=== PATIENT | male | born 1965 | race American Indian/Alaskan Native ===

== ENCOUNTER 2016-08-12 09:24 | Day surgery (SDC) | payer OTHER ==
[2016-08-12 10:40] LABS: Basophils % (Auto) 0.6 % (0.0-1.8); Eosinophils % (Auto) 2.6 % (0.0-4.3); Hematocrit 47.9 % (35.5-45.6); Hemoglobin 15.7 gm/dl (11.8-15.2); Mean Corpuscular HGB Conc 33 % (32-34); Mean Corpuscular Hemoglobin 30 pg (28-32); Mean Corpuscular Volume 92 fl (84-94); Platelet Count 170 K/mm3 (140-440); Red Blood Count 5.22 M/mm3 (3.65-5.03); Red Cell Distribution Width 14.4 % (13.2-15.2)
[2016-08-12 10:48] LABS: INR 1.04 (0.87-1.13)
[2016-08-12 10:49] LABS: Partial Thromboplastin Time 28.1 Sec. (24.2-36.6)
--- NOTE | 2016-08-12 10:51 | Anesthesia Consultation ---
Anesthesia Consult and Med Hx Date of service: 08/12/16 - Airway Anesthetic Teeth Evaluation: Poor (poor, but not loose) ROM Head & Neck: Adequate Mental/Hyoid Distance: Adequate Mallampati Class: Class III Intubation Access Assessment: Possibly Difficult - Pulmonary Exam CTA: Yes - Pre-Operative Health Status ASA Pre-Surgery Classification: ASA3 Proposed Anesthetic Plan: General - Pulmonary Hx Smoking: Yes (1 pk per 1.5 week) Hx Asthma: No Hx Sleep Apnea: No (GABBY PRE SCREEN HIGH RISK) - Cardiovascular System Hx Hypertension: Yes (X 2 YRS, take lisinopril, coreg prn) Hx Coronary Artery Disease: Yes Hx Heart Attack/AMI: Yes (2014, has blood clot at the bottom of the heart, but no symptom) Hx Percutaneous Transluminal Coronary Angioplasty (PTCA): Yes (2014 x1) - Central Nervous System Hx Seizures: No CVA: No Hx Back Pain: Yes (TO LEFT LEG WITH WEAKNESS) - Gastrointestinal Hx Gastroesophageal Reflux Disease: Yes (no med) - Endocrine Hx Renal Disease: No Hx Liver Disease: No Hx Non-Insulin Dependent Diabetes: No (borderline) - Hematic Hx Anemia: No Hx Sickle Cell Disease: No - Other Systems Hx Cancer: No Hx Obesity: No - Additional Comments Anesthesia Medical History Comments: NAC
--- NOTE | 2016-08-12 10:51 | Anesthesia Day of Surgery ---
Anesthesia Day of Surgery - Day of Surgery Patient Examined: Yes Patient H&P Reviewed: Yes Patient is NPO: Yes
[2016-08-12] MEDS ORDERED: NACL 0.9% 1000 ML 1,000 ML IV SCH (11:00)
[2016-08-12] MEDS ORDERED: VERSED IV NR (11:00)
[2016-08-12] MEDS ORDERED: PEPCID PO NR (11:00)
[2016-08-12 11:01] LABS: Alanine Aminotransferase 16 units/L (7-56); Albumin 3.9 g/dL (3.9-5); Albumin/Globulin Ratio 1.3 %; Alkaline Phosphatase 81 units/L (35-129); Anion Gap 16 mmol/L; BUN/Creatinine Ratio 6.25; Blood Urea Nitrogen 5 mg/dL (9-20); Calcium 9.1 mg/dL (8.4-10.2); Carbon Dioxide 27 mmol/L (22-30); Chloride 103.5 mmol/L (98-107); Glucose 96 mg/dL (75-100); Potassium 3.2 mmol/L (3.6-5.0); Sodium 143 mmol/L (137-145); Total Protein 6.9 g/dL (6.3-8.2)
[2016-08-12] MEDS: DILAUDID IV PRN ×4 (11:15→15:40)
[2016-08-12] MEDS ORDERED: ANCEF/STERILE WATER 2 GM/20 ML 2 GM/20 ML SYRINGE IV NR (12:00)
[2016-08-12] MEDS ORDERED: MARCAINE-EPI 0.25%-1:200,000 INFILTRATI ONE (12:30)
[2016-08-12] MEDS ORDERED: DEPO-MEDROL ONE (12:30)
[2016-08-12] MEDS ORDERED: GELFOAM TP ONE (12:31)
[2016-08-12] MEDS ORDERED: THROMBIN (BOVINE) TP ONE (12:31)
[2016-08-12] MEDS ORDERED: BACITRACIN ONE (12:31)
[2016-08-12] MEDS ORDERED: NACL P/F VIAL (10 ML) 0 ML ONE (12:32)
[2016-08-12] MEDS ORDERED: MARCAINE-EPI/PF 0.5%-1:200,000 INFILTRATI ONE (12:39)
[2016-08-12] MEDS ORDERED: XYLOCAINE MPF 2% ONE (13:06)
[2016-08-12] MEDS ORDERED: ROBINUL ONE ×2 (13:06→14:11)
[2016-08-12] MEDS ORDERED: ZEMURON IV ONE (13:06)
[2016-08-12] MEDS ORDERED: NEOSTIGMINE ONE (13:06)
[2016-08-12] MEDS ORDERED: ZOFRAN ONE (13:06)
[2016-08-12] MEDS ORDERED: DECADRON ONE (13:06)
[2016-08-12] MEDS ORDERED: DIPRIVAN 10 MG/ML IV ONE (13:07)
[2016-08-12] MEDS ORDERED: SUBLIMAZE ONE (13:07)
[2016-08-12] MEDS ORDERED: DILAUDID ONE (13:07)
[2016-08-12] MEDS ORDERED: ePHEDrine SULFATE ONE (13:39)
[2016-08-12] MEDS ORDERED: NACL 0.9% IR ONE (13:40)
[2016-08-12] MEDS ORDERED: NACL 0.9% 1000 ML 1,000 ML ONE (13:45)
--- NOTE | 2016-08-12 14:21 | Short Stay Summary ---
Short Stay Documentation Date of service: 08/12/16 - History H&P: obtained from office - Allergies and Medications Current Medications: Allergies ibuprofen Allergy (Verified 08/11/16 11:23) MUSCLE TREMORS,HBP ketorolac tromethamine [From Toradol] Allergy (Verified 08/11/16 11:23) MUSCLE TREMORS , HBP prednisone Allergy (Verified 08/11/16 11:23) MUSCLE TREMORS , HBP aspirin Adverse Reaction (Verified 08/12/16 10:37) Swelling PT STATES THROAT STARTS CLOSING ANTI-INFLAMMATORIES Allergy (Uncoded 08/11/16 11:23) MUSCLE TREMORS , HBP Home Medications Medication Instructions Recorded Confirmed Last Taken Type Carvedilol [Coreg] 12.5 mg PO BID 08/11/16 08/11/16 08/11/16 History Clopidogrel Bisulfate [Plavix] 75 mg PO DAILY 08/11/16 08/12/16 2 Weeks Ago History HYDROcodone/APAP 5-325 [[place] 1 tab PO PRN PRN 08/11/16 08/11/16 08/11/16 History 5-325 mg TAB] Lisinopril [Zestril] 20 mg PO QDAY 08/11/16 08/11/16 08/11/16 History Oxycodone HCl/Acetaminophen 1 each PO Q6HR PRN 08/11/16 08/11/16 08/11/16 History [Percocet 7.5/325 mg] AtorvaSTATin [Lipitor] 20 mg PO QHS 08/12/16 08/12/16 08/11/16 History Active Medications Hydromorphone HCl (Dilaudid) 0.5 mg IV Q3H PRN PRN Reason: Pain , Severe (7-10) Last Admin: 08/12/16 11:15 Dose: 0.5 mg Sodium Chloride (Nacl 0.9% 1000 Ml) 1,000 mls @ 100 mls/hr IV DIRECT KINJAL Last Admin: 08/12/16 11:15 Dose: 100 mls/hr Midazolam HCl (Versed) 2 mg IV PREOP NR Stop: 08/12/16 23:59 Last Admin: 08/12/16 11:15 Dose: 2 mg - Brief post op/procedure progress note Date of procedure: 08/12/16 Pre-op diagnosis: Herniated lumbar disk L5-1 Post-op diagnosis: same Procedure: Laminectomy, diskectomy L5-1 Anesthesia: GETA Surgeon: FARZAD EUCEDA Rheostat Assembler: CARLY RAJAN Estimated blood loss: none Pathology: list Specimen disposition: to lab Condition: stable - Disposition Condition at discharge: Stable Disposition: DC-01 TO HOME OR SELFCARE - Discharge Diagnoses (1) Herniated lumbar intervertebral disc Status: Resolved Short Stay Discharge Plan Follow up with: PRIMARY CARE, [Primary Care Provider] - 7 Days
[2016-08-12] MEDS ORDERED: BREVIBLOC IV ONE (14:24)
--- NOTE | 2016-08-12 15:07 | Post Anesthesia Evaluation ---
- Post Anesthesia Evaluation Patient Participated: Yes Airway Patent: Yes Stable Respiratory Function: Yes Nausea/Vomiting: No Temp > 96.8F: Yes Pain Manageable: Yes Adequeate Hydration: Yes Anesthesia Complications: No Block Receding Appropriately: Not Applicable Patient on Ventilator: No
--- NOTE | 2016-08-12 15:40 | XRay Report ---
INTRAOPERATIVE LUMBAR SPINE RADIOGRAPHS INDICATION: Low back pain. L5-S1 surgery. COMPARISON: None similar. FINDINGS: Intraoperative fluoroscopic guidance provided. Submitted single crosstable lateral lower lumbar spine fish boning machine feeder radiograph demonstrates metallic forceps-like pointer device behind L5 vertebral body. CONCLUSION: Intraoperative fluoroscopic guidance provided, as described. Thank you for the opportunity to participate in this patient's care.
[2016-08-12] MEDS ORDERED: NORCO 5/325 ONE ×2 (15:44)
[2016-08-12] MEDS ORDERED: NORCO 5/325 PO PRN (15:47)
[2016-08-12 16:50] VITALS: BP 161/90
--- NOTE | 2016-08-12 19:14 | Operative Report ---
PREOPERATIVE DIAGNOSIS: Herniated lumbar disk L5-S1. POSTOPERATIVE DIAGNOSIS: Herniated lumbar disk L5-S1. PROCEDURES: Disk laminectomy, diskectomy L5-S1, on the left. SURGEON: Geeta Blevins MD. ANCILLARY SERVICES MANAGER: Poly Strong RN. ANESTHESIA: General. COMPLICATIONS: None. PROCEDURE IN DETAIL: Once the patient was in surgical room, a time-out was carried out to identify the patient and procedure. The patient was put to sleep and then transferred to the surgical table. The patient was placed on his abdomen on the Sivakumar frame. Once appropriate padding was applied and the frame was in good position, the procedure was carried out by making an incision about an inch in length on the midline of the spine. This was carried down to the subcutaneous tissues. The incision was carried down to the left lower portion of the fascia. The fascia was incised sharply with a knife both medially and laterally to the spine. This allowed full exposure of the posterior elements of the spine. At this point, a Aylin clamp was placed and ____. Once the ____, the patient underwent a hemilaminectomy at the level of L5-S1. This was done mostly on the left. Removal of the ____ ligament of the lamina was done following this by ligamentum flavum ____ to the thecal sac. The thecal sac was then retracted, cotton balls applied, the patient was found to have a ruptured disk. The disk was then incised by freeing up the ligament with a knife, following this by entering the disk space and cleaning all the areas with multiple biters and rongeurs. Once the disk was completely cleaned ____ all the fragments, the procedure was terminated. The wound was irrigated extensively. The thecal sac was found to be intact. Valsalva maneuver done. The muscles were closed with #1 Vicryl and the subcutaneous tissue with 2-0 Vicryl, the skin closed with skin clips. A compression bandage was applied. The patient tolerated the procedure well. There were no complications. Hemodynamically intact and returned to recovery room. JOB# [id number] LUIS/EVELYN
== END 2016-08-12 16:51 | disposition home or self-care (01) ==
LOC: OR 09:24
DX: M51.27 Other intervertebral disc displacement, lumbosacral region (principal); I10 Essential (primary) hypertension; I25.10 Atherosclerotic heart disease of native coronary artery without angina pectoris; K21.9 Gastro-esophageal reflux disease without esophagitis; F17.210 Nicotine dependence, cigarettes, uncomplicated; Z95.5 Presence of coronary angioplasty implant and graft; Z88.8 Allergy status to other drugs, medicaments and biological substances; Z88.5 Allergy status to narcotic agent; Z79.899 Other long term (current) drug therapy; Z82.49 Family history of ischemic heart disease and other diseases of the circulatory system; Z83.3 Family history of diabetes mellitus
CPT/HCPCS: 36415; 63030; 72020; 80053; 85025; 85610; 85730; 86850; 86900; 86901; 88304; J0690; J1030; J1100; J1170; J2250; J2405; J2704; J2710; J3010; J7030; A4649